=== PATIENT | male | born 2000 | race Asian ===

== ENCOUNTER 2020-06-14 01:14 | Emergency (ER) | payer OTHER ==
[~2020-06-14] VITALS: Ht 172.7 cm; Wt 67.6 kg
[2020-06-14 01:22] VITALS: Ht 172.7 cm; Wt 67.6 kg
== END 2020-06-14 02:21 | disposition home or self-care (01) ==
LOC: ED 01:14
DX: S61.002A Unspecified open wound of left thumb without damage to nail, initial encounter (principal); W26.0XXA Contact with knife, initial encounter; Y93.89 Activity, other specified; Y92.89 Other specified places as the place of occurrence of the external cause; Y99.8 Other external cause status